=== PATIENT | female | born 1995 | race Hispanic/Latino ===

== ENCOUNTER 2018-02-05 13:58 | Emergency (ER) | payer OTHER | END 2018-02-05 14:33 | disposition home or self-care (01) | LOC: M ED 13:58 | DX: S60.221A Contusion of right hand, initial encounter (principal); W22.09XA Striking against other stationary object, initial encounter; Y92.098 Other place in other non-institutional residence as the place of occurrence of the external cause | CPT/HCPCS: 73130 ==